=== PATIENT | female | born 1985 | race Caucasian/White ===

== ENCOUNTER 2016-10-06 11:24 | Emergency (ER) | payer OTHER ==
[2016-10-06 12:12] LABS: BASOPHIL 0.2 % (0-2); EOSINOPHIL 0.9 % (0-5); HCT 42.8 % (37.0-47.0); HGB 14.5 g/dl (12.5-16.0); MCH 25.9 pg (25.0-31.0); MCHC 33.9 g/dL (32.0-36.0); MCV 76.4 fL (78.0-100.0); MPV 9.6 fL (6.0-9.5); NEUTROPHIL 70.9 % (41-80); PLT 265 K/uL (150-400); RDW 15.2 % (11.5-14.0); WBC 4.6 K/uL (4.0-10.5)
[2016-10-06 12:28] LABS: ALBUMIN 4.3 g/dL (3.5-5.0); BILIRUBIN - TOTAL 0.3 mg/dL (0.1-1.0); CREATININE 0.7 mg/dL (0.5-1.0); GLOBULIN (CALCULATION) 3.4 g/dL (2.2-4.2); POTASSIUM 3.9 mmol/L (3.5-5.1); TOTAL PROTEIN 7.7 g/dL (6.4-8.3)
== END 2016-10-06 13:40 | disposition home or self-care (01) ==
LOC: FER 11:24
PROVIDERS: Nurse Practitioner
DX: K52.9 Noninfective gastroenteritis and colitis, unspecified (principal); Z91.040 Latex allergy status
CPT/HCPCS: 36415; 80053; 85025; 87804; 87899; C9113; J2405; J2765